=== PATIENT | female | born 1950 | race Caucasian/White ===

== ENCOUNTER 2017-11-26 23:23 | Inpatient (IN) | payer OTHER ==
[~2017-11-26] VITALS: Ht 154.9 cm; Wt 118.8 kg
[~2017-11-26 23:23] MED LIST: BENZTROPINE MES1 MG PO; BRINTELLIX20 MG PO; DESYREL50 MG PO; GLYBURIDE 5 MG T5 M1 PO; HALOPERIDOL 5 MG5 MG PO; HYDROCODONE-AP1 EAC6 PO; LAMICTAL PO; QUETIAPINE FUM400 MG PO; SEROQUEL XR400 M1 PO; VALIUM5 MG PO; VIIBRYD40 MG PO; ZOCOR 10 MG TAB10 MG PO
[2017-11-26 23:26] VITALS: BP 142/64
[2017-11-26] MEDS ORDERED: CLEOCIN HCL150 MG PO (23:30)
[2017-11-26] MEDS ORDERED: ACETAMINOPHEN-1 EAC1 PO (23:30)
[2017-11-26 23:56] LABS: ABSOLUTE EOSINOPHILS 0.2 thou/uL (0.0-0.7); ABSOLUTE LYMPHOCYTES 2.6 thou/uL (0.8-5.3); ABSOLUTE MONOCYTES 0.5 thou/uL (0.0-1.2); ABSOLUTE NEUTROPHILS 2.5 thou/uL (1.6-8.1); BASOPHILS 0.8 %; EOSINOPHILS 3.2 %; HEMATOCRIT 37.3 % (37.0-47.0); HEMOGLOBIN 12.7 gm/dL (12.0-15.0); MCH 31.2 pg (26.0-34.0); MCHC 34.1 g/dL (28.0-37.0); MCV 91.6 fL (80.0-100.0); MPV 8.4 fl. (7.2-11.1); NUCLEATED RBCS 0 /100WBC; PLATELET COUNT* 186 thou/uL (150-400); RBC 4.07 mil/uL (4.20-5.00); RDW-CV 13.5 % (10.5-14.5); WBC 5.9 thou/uL (4.0-11.0)
[2017-11-27] VITALS (7 sets, daily range): BP systolic 126–155; BP diastolic 48–82
[2017-11-27 00:05] LABS: ANION GAP 2 mmol/L (7-16); BUN 13 mg/dL (7-18); CALCIUM 8.7 mg/dL (8.5-10.1); CHLORIDE 101 mmol/L (98-107); CO2 32 mmol/L (21-32); CREATININE 0.9 mg/dL (0.6-1.3); GLUCOSE 144 mg/dL (70-99); POTASSIUM 4.5 mmol/L (3.5-5.1); SODIUM 135 mmol/L (136-145)
[2017-11-27 00:06] LABS: APTT 28.7 Seconds (25.0-31.3); INR 1.1; PROTIME 10.4 Seconds (9.20-11.50)
[2017-11-27 00:15] LABS: ALBUMIN 3.6 g/dL (3.4-5.0); ALKALINE PHOSPHATASE 120 U/L (46-116); LIPASE 86 U/L (73-393); MAGNESIUM 2.2 mg/dL (1.8-2.4); NT-PRO BRAIN NAT PEPTIDE 157 pg/mL (<300); SGOT 66 U/L (15-37); SGPT 74 U/L (30-65); TOTAL PROTEIN 6.5 g/dL (6.4-8.2); TROPONIN-I LEVEL <0.06 ng/mL (<0.06)
--- NOTE | 2017-11-27 05:44 | NUR ---
RECEIVED REPORT FROM DREW ALFORD. TRANSFERRED TO RM 225. PT A&0X4. VSS. PHYSICAL ASSESSMENT COMPLETED AND CHARTED. PT ON O2 VIA NC AT 2L WITH 98% O2 SAT. PT TRACING SR ON TELE. PT UP STANDBY ASSIST TO TOILET. ORIENTED TO ROOM & CALL LIGHT. DENIES ANY PAIN OR DISCOMFORT AT THIS TIME. HOULY ROUNDING OBSERVED. CALL LIGHT WITHIN REACH.
[2017-11-27] MEDS ORDERED: METFORMIN HCL500 MG PO (09:36)
--- NOTE | 2017-11-27 14:35 | NUR ---
Pt is A&O. at bedside. Pt resides at home with her and dtr. Independent with ADLs. No DME. No hx of HH or SNF. Goal is home at dc, no needs anticipated.
[2017-11-27] MEDS ORDERED: COZAAR 25 MG TA25 M1 PO (15:37)
[2017-11-27] MEDS ORDERED: TRAZODONE HCL50 MG PO (15:38)
--- NOTE | 2017-11-27 15:55 | EKG ---
[place] [address] ELECTROCARDIOGRAM REPORT Name: GUILLERMINAJEANNIE A Room: [address] ADM IN .R.#: [id number] Admission: 11/27/17 Attend Phys: Paco Clark MD Discharge: Date of : 54 Report #: [id number] THIS REPORT FOR: //name// [facility] ED Test Date: 2017-11-26 Test Time: 23:28:55 Pat Name: JEANNIE SARMIENTO Department: Room: [facility] Gender: F Field Underwriter: [place] : 1950 Requested By: Ciro Horton Order Number: [id number] MD: Tiburcio Rush Measurements Intervals [place] Rate: 76 P: 58 CO: 152 QRS: 20 QRSD: 97 T: 47 QT: 373 QTc: 420 Interpretive Statements Sinus rhythm Compared to ECG 05/20/2016 10:50:30 No significant changes Electronically Signed On 11-27-2017 15:55:25 CDT by Tiburcio Rush [email or web address] <ELECTRONICALLY SIGNED> By: Tiburcio Rush MD, [facility] 11/27/17 1555 27 27 Tiburcio Rush MD, FACC /EPI
--- NOTE | 2017-11-27 17:08 | NUR ---
PT PROGRESSING TOWARDS GOALS THIS SHIFT. PT REPORTS DECREASE IN WHEEZING. PT GIVEN IV STEROIDS AND BREATHING TREATMENTS TODAY. PT REPORTS IMPROVEMENT IN BREATHING. MAINTAINING ON 2L/NC FOR COMFORT. ANTICIPATE TITRATE TO RA TOMORROW. NO OTHER CONCERNS AT THIS TIME. CLWR. WCTM.
[2017-11-28] VITALS: BP 125/64
[2017-11-28 04:00] VITALS: BP 148/53
--- NOTE | 2017-11-28 05:22 | NUR ---
ASSUMED CARE OF PT AFTER REPORT AT 1930. PT A&0X4. VSS. PHYSICAL ASSESSMENT COMPLETED AND CHARTED. PT ON O2 VIA NC AT 2L WITH 95% O2 SAT. PT TRACING SR ON TELE. PT UP STANDBY ASSIST TO TOILET. DENIES ANY PAIN OR DISCOMFORT. HOURLY ROUNDING OBSERVED. HS REST & SAFETY GOALS ACHIEVED. CALL LIGHT WITHIN REACH. BED IN LOW POSITION.
[2017-11-28 08:10] VITALS: BP 112/48
[2017-11-28] MEDS ORDERED: PREDNISONE 10 M10 MG PO (09:15)
[2017-11-28] MEDS ORDERED: ZPAK PO (09:15)
[2017-11-28] MEDS ORDERED: VENTOLIN HFA 1818 GM INH (09:15)
--- NOTE | 2017-11-28 09:51 | NUR ---
RECEIVED REPORT FROM LAURIE AND ASSUMED CARE OF @ 6973.PT IS A/O X4,VSS,TRACING SR ON THE MONITOR.LUNG SOUNDS CLEAR WITH WHEEZES.LAST BM WAS YESTERDAY.IV PATENT AND SALINE LOCKED.PT IS CALM AND COOPERATIVE WITH NO C/O PAIN AT TIME OF ASSESSMENT.PT IS UP AD JOVAN TO BATHROOM.PT LEFT RESTING IN BED WITH CALL LIGHT WITHIN REACH.WILL CONTINUE TO MONITOR.
[2017-11-28 10:50] VITALS: BP 112/48
--- NOTE | 2017-11-28 11:43 | NUR ---
PT OK FOR DISCHARGE.PAPERWORK COMPLETED AND GIVEN TO PT.SCRIPTS GIVEN WITH EDUCATION.IV REMOVED.HEART MONITOR REMOVED AND RETURNED TO NURSING STATION.ALL PERSONAL BELONGINGS PACKED AND TAKEN WITH PT.WHEELED OUT BY NURSING STAFF TO PERSONAL VEHICLE.
== END 2017-11-28 11:45 | disposition home or self-care (01) | DRG 189 ==
LOC: M.ERS 23:23 → M.2W 11-27 00:37 → M.TBA-ER 11-27 00:37 → M.2W 11-27 01:18
PROVIDERS: Family Medicine; ADMIT Internal Medicine
DX: J96.01 Acute respiratory failure with hypoxia (principal); J44.1 Chronic obstructive pulmonary disease with (acute) exacerbation; Z68.42 Body mass index [BMI] 45.0-49.9, adult; F32.9 Major depressive disorder, single episode, unspecified; G47.00 Insomnia, unspecified; E11.9 Type 2 diabetes mellitus without complications; F41.9 Anxiety disorder, unspecified; R74.0 Nonspecific elevation of levels of transaminase and lactic acid dehydrogenase [LDH]; J45.998 Other asthma; E66.01 Morbid (severe) obesity due to excess calories; G47.33 Obstructive sleep apnea (adult) (pediatric); J84.10 Pulmonary fibrosis, unspecified; Z79.899 Other long term (current) drug therapy; Z88.0 Allergy status to penicillin; Z90.49 Acquired absence of other specified parts of digestive tract; Z83.3 Family history of diabetes mellitus; Z87.01 Personal history of pneumonia (recurrent)

== ENCOUNTER 2018-02-12 10:41 | Emergency (ER) | payer OTHER ==
[~2018-02-12] VITALS: Ht 154.9 cm; Wt 114.3 kg
[~2018-02-12 10:41] MED LIST changes: +ACETAMINOPHEN-1 EAC1 PO; +CLEOCIN HCL150 MG PO; +COZAAR 25 MG TA25 M1 PO; +METFORMIN HCL500 MG PO; +PREDNISONE 10 M10 MG PO; +TRAZODONE HCL50 MG PO; +VENTOLIN HFA 1818 GM INH; +ZPAK PO
[2018-02-12] MEDS ORDERED: ZPAK PO (11:49)
[2018-02-12] MEDS ORDERED: NABUMETONE 750750 M1 PO (11:49)
[2018-02-12 12:09] VITALS: BP 140/70
== END 2018-02-12 12:10 | disposition home or self-care (01) ==
LOC: M.ERS 10:41
DX: J02.9 Acute pharyngitis, unspecified (principal); F32.9 Major depressive disorder, single episode, unspecified; E11.9 Type 2 diabetes mellitus without complications; F41.9 Anxiety disorder, unspecified; Z90.49 Acquired absence of other specified parts of digestive tract; Z88.0 Allergy status to penicillin

== ENCOUNTER 2018-03-21 17:09 | Emergency (ER) | payer OTHER ==
[~2018-03-21] VITALS: Ht 154.9 cm; Wt 114.3 kg
[~2018-03-21 17:09] MED LIST changes: +NABUMETONE 750750 M1 PO
[2018-03-21] MEDS ORDERED: SYMBICORT160 MCG/4. INH (17:14)
[2018-03-21 17:34] LABS: ABSOLUTE EOSINOPHILS 0.2 thou/uL (0.0-0.7); ABSOLUTE LYMPHOCYTES 2.3 thou/uL (0.8-5.3); ABSOLUTE MONOCYTES 0.9 thou/uL (0.0-1.2); ABSOLUTE NEUTROPHILS 3.3 thou/uL (1.6-8.1); BASOPHILS 0.2 %; EOSINOPHILS 3.6 %; HEMATOCRIT 40.2 % (37.0-47.0); HEMOGLOBIN 13.8 gm/dL (12.0-15.0); LYMPHOCYTES 34.5 %; MCH 31.1 pg (26.0-34.0); MCHC 34.2 g/dL (28.0-37.0); MCV 90.9 fL (80.0-100.0); MONOCYTES 12.8 %; MPV 8.8 fl. (7.2-11.1); NUCLEATED RBCS 0 /100WBC; PLATELET COUNT* 192 thou/uL (150-400); POLYS 48.9 %; RBC 4.43 mil/uL (4.20-5.00); RDW-CV 13.3 % (10.5-14.5); WBC 6.8 thou/uL (4.0-11.0)
[2018-03-21 17:48] LABS: ANION GAP 9 mmol/L (7-16); BUN 10 mg/dL (7-18); CALCIUM 9.4 mg/dL (8.5-10.1); CHLORIDE 102 mmol/L (98-107); CO2 28 mmol/L (21-32); CREATININE 0.9 mg/dL (0.6-1.3); GLUCOSE 146 mg/dL (70-99); POTASSIUM 4.3 mmol/L (3.5-5.1); SODIUM 139 mmol/L (136-145)
[2018-03-21 17:54] LABS: ALBUMIN 3.7 g/dL (3.4-5.0); ALKALINE PHOSPHATASE 120 U/L (46-116); SGOT 30 U/L (15-37); SGPT 49 U/L (30-65); TOTAL BILIRUBIN 0.6 mg/dL (<0.1-1.0); TROPONIN-I LEVEL <0.06 ng/mL (<0.06)
[2018-03-21] MEDS ORDERED: PREDNISONE 20 M20 MG PO (18:31)
[2018-03-21] MEDS ORDERED: ZPAK PO (18:31)
[2018-03-21 19:52] VITALS: BP 148/66
--- NOTE | 2018-03-22 13:45 | EKG ---
[place] [address] ELECTROCARDIOGRAM REPORT Name: GUILLERMINAJEANNIE Room: [facility]#: [id number] Admission: 03/21/18 Attend Phys: Discharge: 03/21/18 Date of : 54 Report #: [id number] THIS REPORT FOR: //name// [facility] ED Test Date: 2018-03-21 Test Time: 17:14:39 Pat Name: JEANNIE SARMIENTO Department: Room: Gender: F Candlemaker: SOLIS : 1950 Requested By: Rayne Curry Order Number: [id number] MD: Davin Lovell Measurements Intervals [place] Rate: 82 P: [place]: QRS: 6 QRSD: 86 T: 29 QT: 371 QTc: 434 Interpretive Statements sinus rhythm Baseline wander in lead(s) V1,V3,V4,V5 Compared to ECG 11/26/2017 23:28:55 no change Electronically Signed On 03-22-2018 13:45:41 CORRESPONDENCE SECTION SUPERVISOR by Davin Lovell [email or web address] <ELECTRONICALLY SIGNED> By: Davin Lovell MD, [facility] 03/22/18 1345 171 13 Davin Lovell MD, [facility] /EPI
--- NOTE | 2018-03-22 13:48 | EKG ---
[place] [address] ELECTROCARDIOGRAM REPORT Name: JEANNIE SARMIENTO Room: [facility]#: [id number] Admission: 03/21/18 Attend Phys: Discharge: 03/21/18 Date of : 54 Report #: [id number] THIS REPORT FOR: //name// [facility] ED Test Date: 2018-03-21 Test Time: 18:51:01 Pat Name: JEANNIE SARMIENTO Department: Room: Gender: F 911 Telecommunicator: [facility] : 1950 Requested By: Rayne Curry Order Number: [id number] MD: Davin Lovell Measurements Intervals [place] Rate: 85 P: SD: QRS: -6 QRSD: 92 T: 14 QT: 390 QTc: 464 Interpretive Statements sinus rhythm artifact noted Electronically Signed On 03-22-2018 13:47:56 SWATCH MAKER by Davin Lovell [email or web address] <ELECTRONICALLY SIGNED> By: Davin Lovell MD, [facility] 03/22/18 1347 1851 1851 Davin Lovell MD, FACC /EPI
== END 2018-03-21 19:55 | disposition home or self-care (01) ==
LOC: M.ERS 17:09
PROVIDERS: Physician Assistant
DX: J44.1 Chronic obstructive pulmonary disease with (acute) exacerbation (principal); F32.9 Major depressive disorder, single episode, unspecified; G47.00 Insomnia, unspecified; E11.9 Type 2 diabetes mellitus without complications; F41.9 Anxiety disorder, unspecified; Z90.49 Acquired absence of other specified parts of digestive tract; Z88.0 Allergy status to penicillin

== ENCOUNTER 2018-03-24 15:54 | Inpatient (IN) | payer OTHER ==
[~2018-03-24] VITALS: Ht 154.9 cm; Wt 114.3 kg
[~2018-03-24 15:54] MED LIST changes: +PREDNISONE 20 M20 MG PO; +SYMBICORT160 MCG/4. INH
[2018-03-24 15:58] VITALS: BP 135/75
[2018-03-24 16:24] LABS: HEMATOCRIT 38.3 % (37.0-47.0); HEMOGLOBIN 12.9 gm/dL (12.0-15.0); MCH 31.1 pg (26.0-34.0); MCHC 33.8 g/dL (28.0-37.0); MPV 8.8 fl. (7.2-11.1); NUCLEATED RBCS 0 /100WBC; PLATELET COUNT* 195 thou/uL (150-400); RBC 4.16 mil/uL (4.20-5.00); RDW-CV 13.6 % (10.5-14.5); WBC 7.5 thou/uL (4.0-11.0)
[2018-03-24 16:34] LABS: APTT 27.6 Seconds (25.0-31.3); PROTIME 10.2 Seconds (9.20-11.50)
[2018-03-24 16:35] LABS: ANION GAP 14 mmol/L (7-16); BUN 24 mg/dL (7-18); CALCIUM 8.9 mg/dL (8.5-10.1); CHLORIDE 99 mmol/L (98-107); CO2 23 mmol/L (21-32); CREATININE 1.4 mg/dL (0.6-1.3); GLUCOSE 353 mg/dL (70-99); POTASSIUM 4.1 mmol/L (3.5-5.1); SODIUM 136 mmol/L (136-145)
[2018-03-24 16:45] LABS: ALBUMIN 3.6 g/dL (3.4-5.0); ALKALINE PHOSPHATASE 107 U/L (46-116); LIPASE 112 U/L (73-393); MAGNESIUM 1.9 mg/dL (1.8-2.4); NT-PRO BRAIN NAT PEPTIDE 187 pg/mL (<300); SGOT 10 U/L (15-37); SGPT 34 U/L (30-65); TOTAL BILIRUBIN 0.3 mg/dL (<0.1-1.0); TOTAL PROTEIN 6.7 g/dL (6.4-8.2); TROPONIN-I LEVEL <0.06 ng/mL (<0.06)
[2018-03-24 16:56] LABS: ABSOLUTE MONOCYTES 0.2 thou/uL (0.0-1.2); ABSOLUTE NEUTROPHILS 6.3 thou/uL (1.6-8.1); PLATELET ESTIMATE ADEQUATE
[2018-03-24 18:00] VITALS: BP 127/67
[2018-03-24 18:20] VITALS: BP 141/53
[2018-03-24] MEDS ORDERED: ACETAMINOPHEN-1 EAC1 PO (18:23)
[2018-03-24] MEDS ORDERED: LAMICTAL100 MG PO (18:24)
--- NOTE | 2018-03-24 18:55 | NUR ---
PATIENT ADMITTED TO ROOM 305 FROM ER. ALERT AND ORIENTED X 4. NO COMPLAINTS AT THIS TIME. [address], VITALS WNL. MENDING CARRIER IN PLACE. DR. BURROWS NOTIFIED THAT PATIENT POSITIVE SEPSIS IN ER AND ER DOC WAS MADE AWARE BY ER NURSE, NO ORDERS RECEIVED AT THAT TIME PER REPORT. PATIENT DID NOT SCREEN POSITIVE FOR SEPSIS ON THE FLOOR BUT LACTIC ACID LEVEL WAS 6.3 WITH REDRAW, NO NEW ORDERS FROM DR. BURROWS AT THIS TIME. PATIENT REFUSING ANY DINNER THIS EVENING. UP WITH SBA. CALL LIGHT WITHIN REACH, WILL CONTINUE TO MONITOR.
[2018-03-24 21:13] LABS: BE -0.9 mmol/L (-2 to +3); PCO2 41.1 mmHg (35.0-45.0); PO2 96.8 mmHg (75.0-100.0); pH 7.385 (7.340-7.450)
[2018-03-25] VITALS: BP 127/77
[2018-03-25 04:00] VITALS: BP 125/61
[2018-03-25 05:48] LABS: ABSOLUTE MONOCYTES 0.2 thou/uL (0.0-1.2); ABSOLUTE NEUTROPHILS 5.2 thou/uL (1.6-8.1); BASOPHILS 0.1 %; HEMATOCRIT 35.4 % (37.0-47.0); HEMOGLOBIN 12.3 gm/dL (12.0-15.0); LYMPHOCYTES 15.9 %; MCH 31.7 pg (26.0-34.0); MCHC 34.8 g/dL (28.0-37.0); MCV 91.2 fL (80.0-100.0); MONOCYTES 2.6 %; MPV 8.9 fl. (7.2-11.1); NUCLEATED RBCS 0 /100WBC; PLATELET COUNT* 186 thou/uL (150-400); POLYS 81.4 %; RBC 3.89 mil/uL (4.20-5.00); RDW-CV 13.2 % (10.5-14.5); WBC 6.4 thou/uL (4.0-11.0)
[2018-03-25 05:52] LABS: CALCIUM 8.3 mg/dL (8.5-10.1); CREATININE 0.8 mg/dL (0.6-1.3)
--- NOTE | 2018-03-25 07:39 | NUR ---
PATIENT SLEPT MOST OF THE NIGHT. IV FLUIDS CONTINUE TO INFUSE ORDERED. PATIENT REMAINS ON OXYGEN AT 2L PER NASAL CANNULA. LUNGS REMAIN COARSE AND WHEEZY. WILL CONTINUE TO MONITOR.
[2018-03-25 07:45] VITALS: BP 123/67
--- NOTE | 2018-03-25 11:31 | EKG ---
[place] [address] ELECTROCARDIOGRAM REPORT Name: JEANNIE SARMIENTO Room: [address] ADM IN [facility].#: [id number] Admission: 03/24/18 Attend Phys: Olayinka Fregoso MD Discharge: Date of : 54 Report #: [id number] THIS REPORT FOR: //name// [facility] ED Test Date: 2018-03-24 Test Time: 16:00:11 Pat Name: JEANNIE SARMIENTO Department: Room: [facility] Gender: F Control Analyst: CAMI : 1950 Requested By: Ciro Horton Order Number: [id number] MD: Davin Lovell Measurements Intervals [place] Rate: 94 P: 56 GA: 138 QRS: 20 QRSD: 88 T: 29 QT: 348 QTc: 436 Interpretive Statements Sinus rhythm Atrial premature complex Compared to ECG 03/21/2018 18:51:01 Atrial premature complex(es) now present Electronically Signed On 03-25-2018 11:31:09 DIRECTOR CONSUMER AFFAIRS by Davin Lovell [email or web address] <ELECTRONICALLY SIGNED> By: Davin Lovell MD, [facility] 03/25/18 1131 1600 1600 Davin Lovell MD, [facility] /EPI
[2018-03-25 11:43] VITALS: BP 147/58
--- NOTE | 2018-03-25 14:42 | NUR ---
PT.RESTING IN BED. ALERT AND ORIENTED. STATED SHE LIVES WITH HER . SHE SAID HER DAUGHTER,GRANDAUGHTER AND GREAT GRANDSON LIVE WITH THEM ALSO. SHE DOES NOT USE ANY DME OR O2. SHE IS INDEPENDENT WITH ADLS. SHE DOES NOT DRIVE BUT HER DOES. HER DAUGHTER, AND GRANDAUGHTER SHARE THE DOPE HOUSE OPERATOR HELPER. PT.SAID SHE CANNOT DO MUCH BECAUSE SHE GET SO OUT OF BREATH. CM WILL FOLLOW.
[2018-03-25 17:00] VITALS: BP 96/40
--- NOTE | 2018-03-25 17:56 | NUR ---
PATIENT A&OX4, 2L O2 VIA NC, IV LEFT FOREARM SALINE LOCK. IV SOLUMEDROL. MODERATE DOSING SLIDING SCALE FOR INSULIN. NO C/O PIAN/N/V. UP STAND BY, STEADY GIAT. PRODUCTIVE COUGH, COARSE LUNG SOUNDS. NO OTHER CONCERNS AT THIS TIME. APPROPRIATE AND COOPORATIVE WITH CARE.
[2018-03-25 21:53] VITALS: BP 110/41
[2018-03-26] VITALS: BP 131/59
[2018-03-26 04:49] VITALS: BP 108/51
[2018-03-26 05:22] LABS: ABSOLUTE LYMPHOCYTES 1.3 thou/uL (0.8-5.3); ABSOLUTE MONOCYTES 0.3 thou/uL (0.0-1.2); ABSOLUTE NEUTROPHILS 6.4 thou/uL (1.6-8.1); BASOPHILS 0.1 %; HEMATOCRIT 35.7 % (37.0-47.0); HEMOGLOBIN 12.1 gm/dL (12.0-15.0); LYMPHOCYTES 15.9 %; MCV 91.4 fL (80.0-100.0); MONOCYTES 3.3 %; MPV 8.7 fl. (7.2-11.1); NUCLEATED RBCS 0 /100WBC; PLATELET COUNT* 187 thou/uL (150-400); POLYS 80.7 %; RDW-CV 13.4 % (10.5-14.5)
[2018-03-26 05:40] LABS: ALBUMIN 3.2 g/dL (3.4-5.0); CALCIUM 8.4 mg/dL (8.5-10.1); CREATININE 0.7 mg/dL (0.6-1.3); POTASSIUM 4.2 mmol/L (3.5-5.1); TOTAL BILIRUBIN 0.3 mg/dL (<0.1-1.0)
--- NOTE | 2018-03-26 05:55 | NUR ---
PATIENT SLEPT MOST OF THE NIGHT. IV REMAINS SALINE LOCKED. PATIENT REMAINS ON OXYGEN AT 2L PER NASAL CANNULA. REMAINS SR ON THE MIDDLE SCHOOL ASSISTANT PRINCIPAL. NO COMPLAINTS OF PAIN. WILL CONTINUE TO MONITOR.
[2018-03-26 07:55] VITALS: BP 123/73
[2018-03-26 11:48] VITALS: BP 137/71
--- NOTE | 2018-03-26 16:23 | NUR ---
PATIENT A&OX4, 2L O2 VIA NC, IV LEFT FOREARM SALINE LOCK. IV STEROIDS BID. UP AD JOVAN, STEADY GAIT. NO C/O PAIN/N/V. PRODUCTIVE COUGH NOTED, NO SPUTUM PRODUCTION. ACHS BLOOD SUGAR, INSULIN SLIDING SCALE. NO OTHER CONCERNS AT THIS TIME. APPROPRIATE AND COOPORATIVE WITH CARE. WILL CONTINUE TO MONITOR.
[2018-03-26 16:29] VITALS: BP 144/77
[2018-03-26 19:30] VITALS: BP 141/79
[2018-03-27] VITALS: BP 122/51
[2018-03-27 03:47] VITALS: BP 136/76
[2018-03-27 04:37] LABS: ABSOLUTE EOSINOPHILS 0.3 thou/uL (0.0-0.7); ABSOLUTE LYMPHOCYTES 1.4 thou/uL (0.8-5.3); ABSOLUTE MONOCYTES 0.4 thou/uL (0.0-1.2); ABSOLUTE NEUTROPHILS 7.2 thou/uL (1.6-8.1); BASOPHILS 0.4 %; EOSINOPHILS 3.6 %; HEMATOCRIT 37.7 % (37.0-47.0); HEMOGLOBIN 12.8 gm/dL (12.0-15.0); LYMPHOCYTES 14.7 %; MCH 31.6 pg (26.0-34.0); MCV 92.8 fL (80.0-100.0); MONOCYTES 4.5 %; MPV 9.4 fl. (7.2-11.1); NUCLEATED RBCS 0 /100WBC; PLATELET COUNT* 196 thou/uL (150-400); POLYS 76.8 %; RBC 4.07 mil/uL (4.20-5.00); RDW-CV 13.7 % (10.5-14.5); WBC 9.4 thou/uL (4.0-11.0)
[2018-03-27 04:56] LABS: CALCIUM 8.5 mg/dL (8.5-10.1); CREATININE 0.8 mg/dL (0.6-1.3); POTASSIUM 4.4 mmol/L (3.5-5.1)
--- NOTE | 2018-03-27 05:47 | NUR ---
NO ACUTE CHANGES DURING SHIFT. PT MAINTAINS O2 SAT > 92% ON O2 AT 2 LITERS. PT SHORT OF AIR WITH ACTIVITY BUT RECOVERS QUICKLY. HEART RATE AND BLOOD PRESSURE WITHIN DEFINED LIMITS, PT AFEBRILE DURING NIGHT. PT RECIEVING SLIDING SCALE INSULIN PER EMAR. PT SLEEPING AT THIS TIME, NO COMPLAINTS OF PAIN OR DISCOMFORT. WILL CONTINUE TO MONITOR.
[2018-03-27 08:00] VITALS: BP 150/70
[2018-03-27 12:40] VITALS: BP 172/58
[2018-03-27] MEDS ORDERED: PREDNISONE 10 M10 MG PO (13:46)
[2018-03-27] MEDS ORDERED: VIBRAMYCIN 100100 M2 PO (13:48)
[2018-03-27 14:00] VITALS: BP 172/58
--- NOTE | 2018-03-27 14:34 | NUR ---
PATIENT'S PRESCRIPTIONS CALLED INTO [facility] ASKED BY PATIENT. PATIENT'S IV AND WELDING MACHINE OPERATOR HELPER ARC REMOVED. PATIENT VERBALIZED UNDERSTANDING IN REGARDS TO FOLLOW UP APPOINTMENTS, NEW MEDICATIONS, AND S/S TO CALL PHYSICIAN. PATIENT ESCORTED OFF NURSING UNIT VIA WHEELCHAIR WITH VOLUNTEER STAFF. DISCHARGED TO HOME WITH ALL BELONGINGS.
== END 2018-03-27 14:29 | disposition home or self-care (01) | DRG 682 ==
LOC: M.ERS 15:54 → M.TBA-ER 16:38 → M.3W 16:38
PROVIDERS: Family Medicine; ADMIT Internal Medicine
DX: N17.9 Acute kidney failure, unspecified (principal); J96.00 Acute respiratory failure, unspecified whether with hypoxia or hypercapnia; J44.1 Chronic obstructive pulmonary disease with (acute) exacerbation; J44.0 Chronic obstructive pulmonary disease with (acute) lower respiratory infection; E87.2 Acidosis; R65.10 Systemic inflammatory response syndrome (SIRS) of non-infectious origin without acute organ dysfunction; E11.65 Type 2 diabetes mellitus with hyperglycemia; J20.9 Acute bronchitis, unspecified; F32.9 Major depressive disorder, single episode, unspecified; G47.00 Insomnia, unspecified; F41.9 Anxiety disorder, unspecified; Z90.49 Acquired absence of other specified parts of digestive tract; Z88.0 Allergy status to penicillin; Z83.3 Family history of diabetes mellitus

== ENCOUNTER 2018-11-24 09:53 | Emergency (ER) | payer OTHER ==
[~2018-11-24] VITALS: Ht 154.9 cm; Wt 91.4 kg
[~2018-11-24 09:53] MED LIST changes: +LAMICTAL100 MG PO; +VIBRAMYCIN 100100 M2 PO
[2018-11-24] MEDS ORDERED: VICTOZA0.6 MG/0.1 SUBQ (10:40)
[2018-11-24 10:41] LABS: ABSOLUTE EOSINOPHILS 0.2 thou/uL (0.0-0.7); ABSOLUTE LYMPHOCYTES 1.8 thou/uL (0.8-5.3); ABSOLUTE MONOCYTES 0.4 thou/uL (0.0-1.2); ABSOLUTE NEUTROPHILS 3.6 thou/uL (1.6-8.1); BASOPHILS 0.8 %; EOSINOPHILS 2.7 %; HEMATOCRIT 34.2 % (37.0-47.0); HEMOGLOBIN 11.6 gm/dL (12.0-15.0); LYMPHOCYTES 29.5 %; MCHC 33.9 g/dL (28.0-37.0); MCV 91.4 fL (80.0-100.0); MONOCYTES 7.1 %; MPV 9.6 fl. (7.2-11.1); NUCLEATED RBCS 0 /100WBC; PLATELET COUNT* 158 thou/uL (150-400); POLYS 59.9 %; RBC 3.74 mil/uL (4.20-5.00); RDW-CV 14.5 % (10.5-14.5)
[2018-11-24 10:51] LABS: ANION GAP 10 mmol/L (7-16); BUN 9 mg/dL (7-18); CALCIUM 8.9 mg/dL (8.5-10.1); CHLORIDE 105 mmol/L (98-107); CO2 26 mmol/L (21-32); CREATININE 0.8 mg/dL (0.6-1.3); GLUCOSE 164 mg/dL (70-99); POTASSIUM 3.9 mmol/L (3.5-5.1); SODIUM 141 mmol/L (136-145)
[2018-11-24 11:00] LABS: ALBUMIN 3.4 g/dL (3.4-5.0); ALKALINE PHOSPHATASE 101 U/L (46-116); SGOT 20 U/L (15-37); SGPT 25 U/L (30-65); TOTAL BILIRUBIN 0.7 mg/dL (<0.1-1.0); TOTAL PROTEIN 6.5 g/dL (6.4-8.2); TROPONIN-I LEVEL <0.06 ng/mL (<0.06)
[2018-11-24] MEDS ORDERED: MEDROLDOSEPACK PO (11:11)
[2018-11-24 11:25] VITALS: BP 117/57
--- NOTE | 2018-11-24 15:06 | EKG ---
[place] [address] ELECTROCARDIOGRAM REPORT Name: GUILLERMINA,JEANNIE Izquierdo Room: [facility]#: [id number] Admission: 11/24/18 Attend Phys: Discharge: 11/24/18 Date of : 54 Report #: [id number] THIS REPORT FOR: //name// [facility] ED Test Date: 2018-11-24 Test Time: 10:01:43 Pat Name: JEANNIE SARMIENTO Department: Room: Gender: F Worm Raiser: : 1950 Requested By: Dagoberto Mejia Order Number: [id number] MD: Davin Lovell Measurements Intervals [place] Rate: 78 P: 43 KS: 150 QRS: -2 QRSD: 89 T: 6 QT: 395 QTc: 450 Interpretive Statements Sinus rhythm Low voltage, precordial leads Borderline T abnormalities, anterior leads Baseline wander in lead(s) I,aVR Compared to ECG 03/24/2018 16:00:11 Low QRS voltage now present T-wave abnormality now present Atrial premature complex(es) no longer present Electronically Signed On 11-24-2018 15:06:25 CDT by Davin Lovell [email or web address] <ELECTRONICALLY SIGNED> By: Davin Lovell MD, [facility] 11/24/18 1506 1001 1001 Davin Lovell MD, [facility] /EPI
== END 2018-11-24 11:25 | disposition home or self-care (01) ==
LOC: M.ERS 09:53
PROVIDERS: Physician Assistant
DX: J44.9 Chronic obstructive pulmonary disease, unspecified (principal); F32.9 Major depressive disorder, single episode, unspecified; G47.00 Insomnia, unspecified; E11.9 Type 2 diabetes mellitus without complications; K76.0 Fatty (change of) liver, not elsewhere classified; F41.9 Anxiety disorder, unspecified; Z90.49 Acquired absence of other specified parts of digestive tract; Z90.13 Acquired absence of bilateral breasts and nipples; Z88.0 Allergy status to penicillin

== ENCOUNTER 2019-05-01 02:37 | Emergency (ER) | payer OTHER ==
[~2019-05-01] VITALS: Ht 154.9 cm; Wt 70.3 kg
[~2019-05-01 02:37] MED LIST changes: +MEDROLDOSEPACK PO; +VICTOZA0.6 MG/0.1 SUBQ
[2019-05-01] MEDS ORDERED: COZAAR 25 MG TA25 M1 PO (02:59)
[2019-05-01] MEDS ORDERED: DICLOFENAC PO (03:00)
[2019-05-01] MEDS ORDERED: NEURONTIN 300M300 M2 PO (03:23)
[2019-05-01 03:58] VITALS: BP 141/50
== END 2019-05-01 03:59 | disposition home or self-care (01) ==
LOC: M.ERS 02:37
DX: M79.641 Pain in right hand (principal); L53.9 Erythematous condition, unspecified; E11.9 Type 2 diabetes mellitus without complications; Z88.0 Allergy status to penicillin; Z90.49 Acquired absence of other specified parts of digestive tract

== ENCOUNTER 2020-08-07 16:23 | Emergency (ER) | payer OTHER ==
[~2020-08-07] VITALS: Ht 154.9 cm; Wt 55.3 kg
[~2020-08-07 16:23] MED LIST changes: +DICLOFENAC PO; +NEURONTIN 300M300 M2 PO
[2020-08-07] MEDS ORDERED: PERCOCET 5-3251 EACH PO (16:29)
[2020-08-07 17:06] LABS: ABSOLUTE BASOPHILS 0.1 thou/uL (0.0-0.2); ABSOLUTE EOSINOPHILS 0.1 thou/uL (0.0-0.7); ABSOLUTE LYMPHOCYTES 1.3 thou/uL (0.8-5.3); ABSOLUTE MONOCYTES 0.5 thou/uL (0.0-1.2); ABSOLUTE NEUTROPHILS 3.7 thou/uL (1.6-8.1); BASOPHILS 0.9 %; EOSINOPHILS 1.9 %; HEMATOCRIT 32.1 % (37.0-47.0); HEMOGLOBIN 10.8 gm/dL (12.0-15.0); LYMPHOCYTES 22.8 %; MCH 30.3 pg (26.0-34.0); MCHC 33.7 g/dL (28.0-37.0); MCV 89.9 fL (80.0-100.0); MONOCYTES 9.3 %; MPV 9.5 fl. (7.2-11.1); NUCLEATED RBCS 0 /100WBC; PLATELET COUNT* 178 thou/uL (150-400); POLYS 65.1 %; RBC 3.58 mil/uL (4.20-5.00); RDW-CV 13.6 % (10.5-14.5); WBC 5.7 thou/uL (4.0-11.0)
[2020-08-07 17:25] LABS: ALBUMIN 3.3 g/dL (3.4-5.0); CREATININE 0.4 mg/dL (0.6-1.3); POTASSIUM 4.2 mmol/L (3.5-5.1); TOTAL BILIRUBIN 0.5 mg/dL (<0.1-1.0); TOTAL PROTEIN 6.8 g/dL (6.4-8.2)
[2020-08-07 17:30] LABS: CALCIUM 8.7 mg/dL (8.5-10.1)
[2020-08-07] MEDS ORDERED: CITRATE OF MAG296 M1 PO (18:29)
[2020-08-07 18:52] LABS: URINE BILIRUBIN NEGATIVE (Negative); URINE BLOOD NEGATIVE (Negative); URINE CLARITY CLEAR; URINE COLOR YELLOW; URINE GLUCOSE-RANDOM NEGATIVE (Negative); URINE KETONES NEGATIVE (Negative); URINE LEUKOCYTES-REFLEX TRACE (Negative); URINE NITRITE-REFLEX NEGATIVE (Negative); URINE PROTEIN NEGATIVE (Negative); URINE UROBILINOGEN 0.2 E.U./dl (0.2-1.0)
[2020-08-07 19:06] LABS: CRYSTALS None Seen /LPF (None Seen); MUCUS None Seen strn/LPF (None Seen); SQUAMOUS 0-3 Few /LPF (0-3)
[2020-08-07 19:07] LABS: BACTERIA-REFLEX 1-9 Few /HPF (None Seen); CASTS None Seen /LPF (None Seen); URINE RBC None Seen /HPF (0-2); URINE WBC-REFLEX 0-5 Rare /HPF (0-5)
[2020-08-07 22:55] VITALS: BP 120/59
--- NOTE | 2020-08-08 12:47 | EKG ---
[place] [address] ELECTROCARDIOGRAM REPORT Name: JEANNIE SARMIENTO Room: [facility]#: [id number] Admission: 08/07/20 Attend Phys: Discharge: 08/07/20 Date of : 54 Date of Service: 08/07/20 1705 Report #: [id number] THIS REPORT FOR: //name// [facility] ED Test Date: 2020-08-07 Test Time: 17:05:17 Pat Name: JEANNIE SARMIENTO Department: Room: Gender: Election Assistant: : 1950 Requested By: Ankit Oakes Order Number: [id number] MD: Tiburcio Rush Measurements Intervals [place] Rate: 63 P: 52 NC: 147 QRS: 22 QRSD: 89 T: 38 QT: 425 QTc: 436 Interpretive Statements Sinus rhythm Compared to ECG 11/24/2018 10:01:43 T-wave abnormality no longer present Electronically Signed On 08-08-2020 12:47:29 CDT by Tiburcio Rush [email or web address] <ELECTRONICALLY SIGNED> By: Tiburcio Rush MD, [facility] 08/08/20 1247 1705 1705 Tiburcio Rush MD, [facility] /EPI
== END 2020-08-07 22:56 | disposition home or self-care (01) ==
LOC: M.ERS 16:23
PROVIDERS: Emergency Medicine Emergency Medical Services
DX: K56.41 Fecal impaction (principal); E11.9 Type 2 diabetes mellitus without complications; Z88.0 Allergy status to penicillin; Z90.49 Acquired absence of other specified parts of digestive tract; Z85.819 Personal history of malignant neoplasm of unspecified site of lip, oral cavity, and pharynx

== ENCOUNTER → 2020-08-31 | Outpatient (CLI) | payer OTHER ==
[~2020-08-31] VITALS: Ht 154.9 cm; Wt 54.0 kg
[~2020-08-31] MED LIST changes: +CITRATE OF MAG296 M1 PO; +PERCOCET 5-3251 EACH PO
[2020-08-31 09:53] VITALS: BP 111/47; BP 117/48
[2020-08-31 09:59] LABS: HEMATOCRIT 32.8 % (37.0-47.0); MCH 28.7 pg (26.0-34.0); MCHC 33.5 g/dL (28.0-37.0); MCV 85.8 fL (80.0-100.0); MPV 8.8 fl. (7.2-11.1); RBC 3.82 mil/uL (4.20-5.00); RDW-CV 14.4 % (10.5-14.5); WBC 4.3 thou/uL (4.0-11.0)
[2020-08-31 10:15] LABS: CALCIUM 9.3 mg/dL (8.5-10.1); CREATININE 0.6 mg/dL (0.6-1.3); POTASSIUM 4.4 mmol/L (3.5-5.1)
[2020-08-31 10:20] LABS: ALBUMIN 3.5 g/dL (3.4-5.0); TOTAL BILIRUBIN 0.6 mg/dL (<0.1-1.0); TOTAL PROTEIN 6.7 g/dL (6.4-8.2)
[2020-08-31 10:32] LABS: APTT 27.9 Seconds (25.0-31.3); PROTIME 10.7 Seconds (9.20-11.50)
[2020-08-31 13:32] VITALS: BP 133/58
[2020-08-31 13:49] VITALS: BP 134/57
[2020-08-31 14:13] VITALS: BP 137/41
== END | disposition home or self-care (01) ==
LOC: M.INT 09:05
PROVIDERS: Radiology Diagnostic Radiology; ATTEND Radiology Radiation Oncology
DX: Z43.1 Encounter for attention to gastrostomy (principal); E11.9 Type 2 diabetes mellitus without complications; F41.9 Anxiety disorder, unspecified; F32.9 Major depressive disorder, single episode, unspecified; G47.00 Insomnia, unspecified; Z98.890 Other specified postprocedural states; Z79.899 Other long term (current) drug therapy; Z90.49 Acquired absence of other specified parts of digestive tract; Z85.831 Personal history of malignant neoplasm of soft tissue; Z85.818 Personal history of malignant neoplasm of other sites of lip, oral cavity, and pharynx

== ENCOUNTER 2020-09-07 21:02 | Emergency (ER) | payer OTHER ==
[~2020-09-07] VITALS: Ht 154.9 cm; Wt 53.1 kg
[2020-09-07] MEDS ORDERED: TYLENOL325 MG PO (21:30)
[2020-09-07] MEDS ORDERED: ATIVAN0.5 M1 PO (21:31)
[2020-09-07] MEDS ORDERED: ZOFRAN ODT4 MG PO (21:31)
[2020-09-07 21:37] LABS: URINE BILIRUBIN NEGATIVE (Negative); URINE BLOOD NEGATIVE (Negative); URINE CLARITY CLEAR; URINE COLOR YELLOW; URINE GLUCOSE-RANDOM NEGATIVE (Negative); URINE KETONES NEGATIVE (Negative); URINE LEUKOCYTES-REFLEX NEGATIVE (Negative); URINE NITRITE-REFLEX NEGATIVE (Negative); URINE PROTEIN NEGATIVE (Negative); URINE SPECIFIC GRAVITY 1.015 (1.005-1.030)
[2020-09-07 21:53] LABS: ABSOLUTE EOSINOPHILS 0.1 thou/uL (0.0-0.7); ABSOLUTE LYMPHOCYTES 0.7 thou/uL (0.8-5.3); ABSOLUTE MONOCYTES 0.6 thou/uL (0.0-1.2); ABSOLUTE NEUTROPHILS 2.7 thou/uL (1.6-8.1); BASOPHILS 0.5 %; EOSINOPHILS 2.9 %; HEMATOCRIT 31.2 % (37.0-47.0); HEMOGLOBIN 10.5 gm/dL (12.0-15.0); LYMPHOCYTES 17.7 %; MCH 29.2 pg (26.0-34.0); MCHC 33.7 g/dL (28.0-37.0); MCV 86.6 fL (80.0-100.0); MPV 8.7 fl. (7.2-11.1); NUCLEATED RBCS 0 /100WBC; PLATELET COUNT* 116 thou/uL (150-400); POLYS 64.9 %; RBC 3.61 mil/uL (4.20-5.00); RDW-CV 14.9 % (10.5-14.5); WBC 4.1 thou/uL (4.0-11.0)
[2020-09-07 22:01] LABS: CALCIUM 8.9 mg/dL (8.5-10.1); CREATININE 0.6 mg/dL (0.6-1.3)
[2020-09-07 22:02] LABS: ALBUMIN 3.2 g/dL (3.4-5.0)
[2020-09-07 22:17] LABS: TOTAL BILIRUBIN 0.4 mg/dL (<0.1-1.0); TOTAL PROTEIN 6.3 g/dL (6.4-8.2)
[2020-09-08 01:15] VITALS: BP 120/48
== END 2020-09-08 01:15 | disposition home or self-care (01) ==
LOC: M.ERS 21:02
PROVIDERS: Emergency Medicine
DX: R10.32 Left lower quadrant pain (principal); E11.9 Type 2 diabetes mellitus without complications; Z90.49 Acquired absence of other specified parts of digestive tract; Z88.0 Allergy status to penicillin; Z79.899 Other long term (current) drug therapy

== ENCOUNTER 2021-01-07 12:17 | Emergency (ER) | payer OTHER ==
[~2021-01-07] VITALS: Ht 154.9 cm; Wt 51.7 kg
[~2021-01-07 12:17] MED LIST changes: +ATIVAN0.5 M1 PO; +TYLENOL325 MG PO; +ZOFRAN ODT4 MG PO
[2021-01-07 13:07] VITALS: BP 156/67
== END 2021-01-07 13:09 | disposition home or self-care (01) ==
LOC: M.ERS 12:17
DX: R09.89 Other specified symptoms and signs involving the circulatory and respiratory systems (principal); R11.0 Nausea; F32.9 Major depressive disorder, single episode, unspecified; E11.9 Type 2 diabetes mellitus without complications; F41.9 Anxiety disorder, unspecified; Z90.49 Acquired absence of other specified parts of digestive tract; Z79.899 Other long term (current) drug therapy; Z88.0 Allergy status to penicillin

== ENCOUNTER 2021-01-11 17:07 | Observation (INO) | payer OTHER ==
[~2021-01-11] VITALS: Ht 154.9 cm; Wt 55.8 kg
[2021-01-11 17:12] VITALS: BP 139/65
[2021-01-11] MEDS ORDERED: ROXICODONE5 M2 PO (17:16)
[2021-01-11 18:17] LABS: ABSOLUTE EOSINOPHILS 0.1 thou/uL (0.0-0.7); ABSOLUTE LYMPHOCYTES 1.2 thou/uL (0.8-5.3); ABSOLUTE MONOCYTES 0.5 thou/uL (0.0-1.2); ABSOLUTE NEUTROPHILS 2.6 thou/uL (1.6-8.1); BASOPHILS 0.6 %; EOSINOPHILS 1.9 %; HEMATOCRIT 34.3 % (37.0-47.0); HEMOGLOBIN 11.6 gm/dL (12.0-15.0); LYMPHOCYTES 26.7 %; MCH 31.1 pg (26.0-34.0); MCHC 33.7 g/dL (28.0-37.0); MCV 92.3 fL (80.0-100.0); MONOCYTES 11.3 %; MPV 8.8 fl. (7.2-11.1); NUCLEATED RBCS 0 /100WBC; PLATELET COUNT* 143 thou/uL (150-400); POLYS 59.5 %; RBC 3.72 mil/uL (4.20-5.00); RDW-CV 13.8 % (10.5-14.5); WBC 4.4 thou/uL (4.0-11.0)
[2021-01-11 18:28] LABS: CALCIUM 9.1 mg/dL (8.5-10.1); CREATININE 0.6 mg/dL (0.6-1.3); POTASSIUM 3.7 mmol/L (3.5-5.1)
[2021-01-11 18:29] LABS: APTT 22.6 Seconds (25.0-31.3); PROTIME 10.9 Seconds (9.20-11.50)
[2021-01-11 18:42] LABS: ALBUMIN 3.6 g/dL (3.4-5.0); CK-MB MASS 1.4 ng/mL (<0.5-3.6); MAGNESIUM 2.2 mg/dL (1.8-2.4); TOTAL BILIRUBIN 0.3 mg/dL (<0.1-1.0); TOTAL PROTEIN 6.4 g/dL (6.4-8.2)
[2021-01-12 00:30] VITALS: BP 139/66
[2021-01-12 00:42] LABS: HEMATOCRIT 31.4 % (37.0-47.0); HEMOGLOBIN 10.8 gm/dL (12.0-15.0); MCH 31.2 pg (26.0-34.0); MCHC 34.6 g/dL (28.0-37.0); MCV 90.2 fL (80.0-100.0); MPV 8.2 fl. (7.2-11.1); RBC 3.47 mil/uL (4.20-5.00); RDW-CV 13.5 % (10.5-14.5); WBC 3.9 thou/uL (4.0-11.0)
[2021-01-12 00:45] VITALS: BP 117/64
[2021-01-12 00:55] LABS: ANION GAP 6 mmol/L (7-16); BUN 9 mg/dL (7-18); CALCIUM 8.6 mg/dL (8.5-10.1); CHLORIDE 104 mmol/L (98-107); CHOLESTEROL 129 mg/dL (<200); CO2 30 mmol/L (21-32); CREATININE 0.6 mg/dL (0.6-1.3); GLUCOSE 92 mg/dL (70-99); HDL CHOLESTEROL 68 mg/dL (>40); LDL CHOLESTEROL 53 mg/dL (<100); POTASSIUM 3.9 mmol/L (3.5-5.1); SODIUM 140 mmol/L (136-145); TC:HDL 1.9 Ratio (Not establshd); TRIGLYCERIDE 44 mg/dL (<150); VLDL 9 mg/dL (<40)
[2021-01-12 01:17] LABS: SERUM ASSESSMENT CLEAR
--- NOTE | 2021-01-12 01:30 | NUR ---
RECEIVED REPORT FROM ER, PT TO ROOM AT 0045. PT DENIES CHEST PAIN BUT HAVING PAIN INTO RT HEAD DUE TO PREVIOUS CANCER. REASSURANCE GIVEN. MED GIVEN IN ER. TELEMETRY APPLIED SHOWING SR. SEE ADMISSION ASSESSMENT AND HX. WILL CONT TO MONITOR AND ASSIST NEEDED.
[2021-01-12 05:00] VITALS: BP 120/60
[2021-01-12 08:30] VITALS: BP 108/64
--- NOTE | 2021-01-12 09:53 | EKG ---
[place] [address] ELECTROCARDIOGRAM REPORT Name: JEANNIE SARMIENTO Room: [address] ADM IN ..#: [id number] Admission: 01/11/21 Attend Phys: Michael Oliver Discharge: Date of : 54 Date of Service: 01/11/21 1723 Report #: [id number] THIS REPORT FOR: //name// [facility] ED Test Date: 2021-01-11 Test Time: 17:23:10 Pat Name: JEANNIE SARMIENTO Department: Room: [facility] Gender: F Refuse Collector: MADELIN : 1950 Requested By: Trent Quintanilla Order Number: [id number] MD: Davin Lovell Measurements Intervals [place] Rate: 65 P: 65 ID: 148 QRS: 30 QRSD: 83 T: 52 QT: 401 QTc: 417 Interpretive Statements Sinus rhythm Compared to ECG 08/07/2020 17:05:17 No significant changes Electronically Signed On 01-12-2021 9:53:34 CDT by Davin Lovell [email or web address] <ELECTRONICALLY SIGNED> By: Davin Lovell MD, FACC 01/12/21 0953 1723 1723 Davin Lovell MD, [facility] /EPI
--- NOTE | 2021-01-12 10:09 | NUR ---
CM ASSESSMENT: PT A&O, INDEPENDENT WITH ADL'S, AND ACTIVE. PT RESIDES AT HOME WITH SPOUSE AND FAMILY. PT USES 0 DME. PT HAS PAST HX OF HH WITH [facility]. PT HAS 0 HX OF SNF. CM WILL REMAIN AVAILABLE TO ASSIST AND FOLLOW NEEDED.
[2021-01-12 11:30] VITALS: BP 136/64
--- NOTE | 2021-01-12 12:24 | 2DMMODE ---
[place] [address] 2 D/M-MODE ECHOCARDIOGRAM Name: JEANNIE SARMIENTO Room: [address] [place]#: [id number] Admission: 01/11/21 Attend Phys: Michael Oliver Discharge: Date of : 54 Date of Service: 01/12/21 1224 Report #: [id number] THIS REPORT FOR: cc: Radhika Rossi,Davin Enriquez MD [facility] ~ APPROVED REPORT Study performed: 01/12/2021 09:36:41 EXAM: Comprehensive 2D, Doppler, and color-flow Echocardiogram Patient Location: In-Patient Room #: [facility] Status: routine BSA: 1.49 HR: 65 bpm BP: 120/60 mmHg Rhythm: NSR Other Information Study Quality: Excellent Indications Chest Pain 2D Dimensions IVSd: 9.42 (7-11mm) LVDd: 41.28 mm PWd: 9.09 (7-11mm) LVDs: 23.76 (25-40mm) Aortic Root: 24.32 mm Volumes Left Atrial Volume (Systole) LA ESV Index: 27.60 mL/m2 Aortic Valve AoV Peak Markus.: 1.78 m/s AO Peak Gr.: 12.74 mmHg LVOT Max P.60 mmHg AO Mean Gr.: 5.99 mmHg LVOT Mean P.32 mmHg LVOT Max V: 1.38 m/s AO V2 VTI: 34.18 cm LVOT Mean V: 0.82 m/s LVOT V1 VTI: 29[place] [address] 2 D/M-MODE ECHOCARDIOGRAM Name: JEANNIE SARMIENTO Room: [address]#: [id number] Admission: 01/11/21 Attend Phys: Michael Oliver Discharge: Date of : 54 Date of Service: 01/12/21 1224 Report #: [id number] Mitral Valve E/A Ratio: 0.89 MV Decel. Time: 238.27 ms MV E Max Markus.: 0.83 m/s MV PHT: 69.10 ms MVA (PHT): 3.18 cm2 TDI E/Lateral E': 7.55 E/Medial E': 7.55 Medial E' Markus.: 0.11 m/s Lateral E' Markus.: 0.11 m/s Pulmonary Valve PV Peak Markus.: 1.00 m/s PV Peak Gr.: 4.02 mmHg Left Ventricle The left ventricle is normal size. There is normal LV segmental wall motion. There is normal left ventricular wall thickness. Left ventricular systolic function is normal. The left ventricular ejection fraction is within the normal range. LVEF is 60-65%. Grade I - abnormal relaxation pattern. Right Ventricle The right ventricle is normal size. The right ventricular systolic function is normal. Atria The left atrium size is normal. The right atrium size is normal. Aortic Valve Mild aortic valve sclerosis. No aortic regurgitation is present. There is no aortic valvular stenosis. Mitral Valve The mitral valve is normal in structure. There is no mitral valve regurgitation noted. No evidence of mitral valve stenosis. Tricuspid Valve The tricuspid valve is normal in structure. Trace tricuspid regurgitation. Unable to assess PA pressure. Pulmonic Valve Pulmonic valve is not well visualized. There is no [place]mon[place] [address] 2 D/M-MODE ECHOCARDIOGRAM Name: JEANNIE SARMIENTO Room: [address] [place]#: [id number] Admission: 01/11/21 Attend Phys: Michael lOiver Discharge: Date of : 54 Date of Service: 01/12/21 1224 Report #: [id number] Great Vessels The aortic root is normal in size. IVC is normal in size and collapses >50% with inspiration. Pericardium There is no pericardial effusion. <Conclusion> LVEF is 60-65%. Mild aortic valve sclerosis. <ELECTRONICALLY SIGNED> By: Davin Lovell MD, FACC 01/12/21 1224 1224 1224 Davin Lovell MD, FAC /INF
--- NOTE | 2021-01-12 16:17 | NUR ---
TOOK OVER PT CARE AT APPROX 1200 FROM PRASHANTH FLORES. PT AOX4, STATES SHE HAS PAIN BUT HAS JUST RECEIVED PAIN MEDS AND THEY DID HELP A LITTLE BIT. AT APPROX 1500, PT VERY UPSET, STATES SHE FEELS SHE HAD NOT RECEIVED THE CARE SHE NEEDS OR PAIN MANAGEMENT IN A TIMELY MANNER AND WANTS TO LEAVE. DR QUINONES NOTIFIED AND STATES HE WOULD PREFER PT TO HAVE STRESS TEST HERE BUT THAT "SHE'S NOT OUR PRISONER" AND THAT DR JOHNSTON CAN DECIDE IF SHE WANTS TO DC PT OR LET HER LEAVE AMA. DR JOHNSTON NOTIFIED AND NOT COMFORTABLE W/ DC'ING PT WHEN CARDS SUGGEST STRESS TEST SO PT OFFERED TO LEAVE AMA, RISKS OF LEAVING AMA EXPLAINED TO PT, IV AND CRYSTALLOGRAPHER REMOVED, PT STATES SHE WILL F/U W/ CARDS OUTPT AND LEFT W/ ALL PERSONAL BELONGINGS AT APPROX 1545
--- NOTE | 2021-01-13 10:03 | CON ---
[address] [address] CONSULTATION Name: JEANNIE SARMIENTO Room: [address] Aleja Arias#: [id number] Admission: 01/11/21 Attend Phys: Juwan Slaughter Discharge: 01/12/21 Date of : 54 Report #: [id number] THIS REPORT FOR: cc: Radhika Rossi Ahmad W. DO Blick, David R. MD [facility] ~ cc: Radhika Rossi DO DATE OF CONSULTATION: 01/12/2021 CARDIOLOGY CONSULTATION HISTORY OF PRESENT ILLNESS: The patient is a 70-year-old white female whom I was asked to see in the hospital today after she complained of chest pain. The patient has no previous history of heart disease. However, she is not very active at this time. 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 She underwent resection of the jaw at in June. She had a temporary tracheostomy. A jaw bone was fashioned from a bone out of her leg. She had radiation therapy in September. She is now undergoing recovery. She was at home yesterday sitting in the chair when she suddenly felt sharp pain in her chest, went into her back. She felt somewhat diaphoretic, but no nausea, shortness of breath. There is no radiation of her pain into the arms. Ambulance was called. She was given nitroglycerin spray. It seemed to help. She was admitted last night. The pain lasted about 15 minutes. She had a brief episode last night that resolved. She denies any recent fever or cough. The pain was not related to food. She does have some difficulty swallowing and has to use a lot of water. She had no vomiting. She denies any trauma to her chest. There is no rash on her chest. She denies any recent exertional dyspnea, palpitations, syncope, or peripheral edema. PAST MEDICAL HISTORY: She has had previous appendectomy, cholecystectomy. She previously weighed 300 pounds and after diet and exercise, she is now 115. She had a previous history of hypertension, diabetes, but no longer on medications. CURRENT MEDICATIONS: Include Neurontin, oxycodone. ALLERGIES: SHE HAS PREVIOUS INTOLERANCE TO PENICILLIN. FAMILY HISTORY: Her grandmother had heart attack. SOCIAL HISTORY: She is . She and her live in [place]. No smoking. She previously drank a pint a day for about 7 years and quit in 2004, no longer abuses alcohol. REVIEW OF SYSTEMS: She has no history of stroke, asthma, liver disease, [place] [address] CONSULTATION Name: JEANNIE SARMIENTO Room: [address] Aleja MOsei#: [id number] Admission: 01/11/21 Attend Phys: Juwan Slaughter Discharge: 01/12/21 Date of : 54 Report #: [id number] disease, chronic skin condition. She was diagnosed with manic depressive illness in the past, no longer on medications. PHYSICAL EXAMINATION: GENERAL: Reveals a middle-aged female, lying in bed. She appeared in no distress. VITAL SIGNS: She has a blood pressure of 140/70, pulse 70. She is afebrile. HEENT: She is anicteric. Conjunctivae pink. Mucous membranes are moist. NECK: Veins not distended. No carotid bruits. Neck is supple. CHEST: Clear to auscultation. CARDIAC: Regular rate and rhythm without murmur. ABDOMEN: Soft. EXTREMITIES: Had no edema. Posterior tibial pulse 2+ bilaterally. SKIN: Cool and dry. NEUROLOGIC: Nonfocal. DIAGNOSTIC DATA: Her ECG on admission showed a sinus rhythm. There was no ST or T-wave change noted. Her chest x-ray in the Emergency Room yesterday showed normal heart size, clear lung gant. LABORATORY DATA: Lab work in the Emergency Room yesterday, creatinine 0.6. Liver function studies were normal. High sensitivity troponin is only 5. BNP 304. Cholesterol 129, triglyceride 44, HDL 68, LDL 53. Her white blood cell count 3.9, hemoglobin 10.8. She had a previous hemoglobin of 11.6 in 2019. Her COVID antigen stat test was not done. IMPRESSION AND RECOMMENDATIONS: 1. Chest pain. Atypical for angina. No evidence of acute myocardial infarction. The patient cannot walk on a treadmill because of deconditioning. Recommend stress dobutamine echocardiogram to rule out ischemia. 2. History of head and neck cancer. 3. History of obesity. 4. Previous history of manic depressive illness. 5. Previous history of alcohol abuse. <ELECTRONICALLY SIGNED> By: Davin Lovell MD, FACC 01/13/21 1003 1021 [id number] Lovell MD, FACC /nt
== END 2021-01-12 15:53 | disposition left against medical advice (07) ==
LOC: M.ERS 17:07 → M.TBA-ER 18:41 → M.2W 18:41
PROVIDERS: Emergency Medicine; Internal Medicine; ADMIT Internal Medicine; ATTEND Internal Medicine
DX: R07.89 Other chest pain (principal); M54.2 Cervicalgia; G89.29 Other chronic pain; I10 Essential (primary) hypertension; E11.9 Type 2 diabetes mellitus without complications; E66.9 Obesity, unspecified; Z79.899 Other long term (current) drug therapy; Z85.21 Personal history of malignant neoplasm of larynx

== ENCOUNTER → 2021-01-30 | Outpatient (CLI) | payer OTHER ==
[~2021-01-30] MED LIST changes: +ROXICODONE5 M2 PO
--- NOTE | 2021-01-30 14:37 | EXE ---
[place] [address] STRESS ECHOCARDIOGRAM Name: JEANNIE SARMIENTO Felecia Room: [facility]#: [id number] Admission: 01/30/21 Attend Phys: Davin Lovell MD Discharge: Date of : 54 Date of Service: 01/30/21 1437 Report #: [id number] THIS REPORT FOR: cc: Radhika Rossi Ahmad W. DO Liston, Michael J. MD [facility] ~ APPROVED REPORT Study performed: 01/30/2021 10:54:47 Exam: Stress Echocardiogram Indication: Chest pain Patient Location: Out-Patient Stress Nurse: Catherine Chou Supervising Physician: Koby Ingram MD Ht: 5 ft 1 in HR: 61 bpm BP: 109/66 mmHg Medical History Cardiac Risk Factors: Age, HTN, FHX of CAD Procedure The patient underwent an Exercise Stress Test using the [place] Protocol. Blood pressure, heart rate, and EKG were monitored. An Echocardiogram was performed by pulmonary function technician in four stages in quad fashion. At peak stress, four selected images were obtained and placed side by side with resting images for comparison. Stress Test Details Stress Test: Exercise stress testing was performed using a [place] protocol. HR Resting HR: 61 bpm Max Heart Rate (APMHR): 152 bpm Max HR Achieved: 118 bpm Target HR (85% APMHR): 129 bpm % of APMHR: 77 Recovery HR: 69 bpm HR response to stress: Normal HR response to stress BP Resting BP: 109/66 mmHg Max BP: 174/66 mmHg Recovery BP: 143/76 mmHg BP response to stress: [place] [address] STRESS ECHOCARDIOGRAM Name: GUILLERMINAJEANNIE A Room: [facility]#: [id number] Admission: 01/30/21 Attend Phys: Davin Lovell MD Discharge: Date of : 54 Date of Service: 01/30/21 1437 Report #: [id number] stress. ECG Resting ECG: Sinus Rhythm Stress ECG: Sinus Tachycardia ST Change: None Arrhythmia: None Recovery ECG: Sinus Rhythm Recovery ST Change: None Recovery Arrhythmia: None Clinical Reason for Termination: Dyspnea, Maximal effort Exercise duration: 6 min 02 sec Highest Stage Achieved: Stage 2: 2.5 mph at 12% grade. Exercise capacity: 7.05 METs Patient noted chest tightness with exercise that resolved in recovery. Stress ECG Conclusion The baseline twelve-lead EKG showed sinus rhythm without significant ST segment or T wave abnormality. EKGs obtained during and post exercise show sinus rhythm and sinus tachycardia with no significant ST segment or T wave changes when compared to baseline. There were no stress-induced arrhythmias. The patient failed to achieve target heart rate and exhibited limited exercise tolerance. Pre-Stress Echo The resting Echocardiogram showed normal left ventricular contractility with an estimated Ejection Fraction of about 60-65%. The resting echocardiogram demonstrated normal wall motion in all wall segments. Post-Stress Echo The stress Echocardiogram showed normal left ventricular contractility with an estimated Ejection Fraction of about >70%. Compared to rest, there were no stress-induced wall motion abnormalities. Conclusion Clinical Response: Equivocal Exercise Capacity: Below Average Stress ECG Response: Non-ischemic Stress Echo Images: Non-ischemic This study is nondiagnostic as the patient failed [place] [address] STRESS ECHOCARDIOGRAM Name: JEANNIE SARMIENTO Room: [facility]#: [id number] Admission: 01/30/21 Attend Phys: Davin Lovell MD Discharge: Date of : 54 Date of Service: 01/30/21 1437 Report #: [id number] heart rate. There were no EKG or echocardiographic findings to suggest stress-induced ischemia at the level of stress achieved. Consider nonexercise stress test if clinically indicated. Other Information Study Quality: Good <Conclusion> This study is nondiagnostic as the patient failed to achieve target heart rate. There were no EKG or echocardiographic findings to suggest stress-induced ischemia at the level of stress achieved. Consider nonexercise stress test if clinically indicated. <ELECTRONICALLY SIGNED> By: Koby Ingram MD, FACC 11/02/21 1437 [id number] [id number] Koby Ingram MD, FACC /INF
== END ==
LOC: M.CRD 10:33
PROVIDERS: ATTEND Internal Medicine Cardiovascular Disease
DX: R07.9 Chest pain, unspecified (principal)